=== PATIENT | male | born 1995 | race Caucasian/White ===

== ENCOUNTER 2019-07-15 19:11 | Emergency (ER) | payer SELFPAY ==
[2019-07-15] MEDS ORDERED: DIPH/PERTUSS(ACELL)/TETANUS VAC/PF 0.5 ML SYR (>=10YO) IM ONE ×2 (20:38→22:46)
--- NOTE | 2019-07-15 20:38 | ER Document Report ---
ED Medical Screen (RME) - General Chief Complaint: Laceration Stated Complaint: LEFT ARM LACERATION Time Seen by Provider: 07/15/19 20:31 Primary Care Provider: KODY LOCO MD [Primary Care Provider] - Follow up as needed Mode of Arrival: Ambulatory Information source: Patient Notes: 23-year-old male presented to ED for laceration to the left forearm. He states he was ripping up tile when it was a piece of metal under the tile and he sliced his arm open it is just below the antecubital space. He put a belt on it as a target with trash trash bags tied on and a dressing to the site. His arm was kind of blue at when first examined. The dressings and tourniquet were all removed. Wound irrigated with some saline wet gauze applied with Coban after he exercised his hand the color did return to his fingers. Laceration is about 6 to 7 cm long. I have greeted and performed a rapid initial assessment of this patient. A comprehensive ED assessment and evaluation of the patient, analysis of test results and completion of medical decision making process will be conducted by an additional ED providers. Physical Exam - Vital signs Vitals: Temp Pulse Resp BP Pulse Ox 98.8 F 74 20 132/74 H 96 07/15/19 19:23 07/15/19 19:23 07/15/19 19:23 07/15/19 19:23 07/15/19 19:23 Course - Vital Signs Vital signs: Temp Pulse Resp BP Pulse Ox 98.8 F 74 20 132/74 H 96 07/15/19 19:23 07/15/19 19:23 07/15/19 19:23 07/15/19 19:23 07/15/19 19:23 Doctor's Discharge - Discharge Referrals: KODY LOCO MD [Primary Care Provider] - Follow up as needed
[2019-07-15] MEDS ORDERED: IBUPROFEN 800 MG TABLET PO ONE (20:39)
[2019-07-15] MEDS ORDERED: LIDOCAINE 1%/EPINEPHRINE INJ 20 ML VIAL INJ ONE (22:10)
--- NOTE | 2019-07-15 22:10 | ER Document Report ---
ED Wound - General Chief Complaint: Laceration Stated Complaint: LEFT ARM LACERATION Time Seen by Provider: 07/15/19 20:31 Primary Care Provider: KODY LOCO MD [NO LOCAL MD] - Follow up as needed Mode of Arrival: Ambulatory Notes: CHIEF COMPLAINT: Left elbow laceration HPI: 23-year-old male presenting to the emergency department complaining of a laceration near the antecubital region of the left elbow. Patient states that he was working putting in a floor and a piece of flashing came out when he pulled on it and it struck him in the arm causing the laceration. Denies numbness or tingling in the fingers at this time. Patient denies other injuries or complaints. ROS: See HPI - all other systems were reviewed and are otherwise negative Constitutional: no fever Integumentary: no rash, positive laceration Allergy: no hives Musculoskeletal: Positive extremity pain or swelling Neurological: no numbness/tingling, no weakness MEDICATIONS: I agree with the patient medications as charted by the RN. ALLERGIES: I agree with the allergies as charted by the RN. PAST MEDICAL HISTORY/PAST SURGICAL HISTORY: Reviewed and agree as charted by RN. SOCIAL HISTORY: Reviewed and agree as charted by RN. FAMILY HISTORY: No significant familial comorbid conditions directly related to patient complaint EXAM: Reviewed vital signs as charted by RN. CONSTITUTIONAL: Alert and oriented and responds appropriately to questions. Well-appearing; well-nourished, mild distress secondary to anxiety HEAD: Normocephalic; atraumatic EYES: Conjunctivae clear, sclerae non-icteric ENT: normal nose; no rhinorrhea; moist mucous membranes NECK: Supple without meningismus CARD: symmetric distal pulses RESP: Normal chest excursion without splinting or tachypnea ABD/GI: non-distended BACK: The back appears normal and is non-tender to palpation, there is no CVA tenderness EXT: Normal ROM in all joints; no cyanosis, no effusions, no edema SKIN: Normal color for age and race; warm; dry; good turgor; there is a 6 cm linear laceration just distal to the antecubital region of the left elbow. No visible tendon, arterial injury. Patient able to fully flex and extend the arm at the elbow. No visible or palpable foreign bodies NEURO: Moves all extremities equally; Motor and sensory function intact PSYCH: The patient's mood and manner are appropriate. Grooming and personal hygiene are appropriate. MDM: 23-year-old male with a sick centimeter laceration just distal to the left antecubital region. Does not appear to be any significant deep structural injury. We will plan to close the wound update tetanus status TRAVEL OUTSIDE OF THE [place] IN LAST 30 DAYS: No - Related Data Allergies/Adverse Reactions: Penicillins Allergy (Unknown, Verified 07/15/19 20:40) Home Medications: denies Past Medical History - General Information source: Patient - Social History Smoking Status: Former Smoker Chew tobacco use (# tins/day): No Frequency of alcohol use: Occasional Drug Abuse: None Family History: Reviewed & Not Pertinent Patient has suicidal ideation: No Patient has homicidal ideation: No Physical Exam - Vital signs Vitals: Temp Pulse Resp BP Pulse Ox 98.8 F 74 20 132/74 H 96 07/15/19 19:23 07/15/19 19:23 07/15/19 19:23 07/15/19 19:23 07/15/19 19:23 Course - Vital Signs Vital signs: Temp Pulse Resp BP Pulse Ox 97.8 F 77 20 129/66 H 84 L 07/15/19 21:56 07/15/19 21:56 07/15/19 21:56 07/15/19 21:56 07/15/19 21:56 Procedures - Laceration/Wound Repair Left Proximal Elbow Time completed: 23:48 Wound length (cm): 6 Wound's Depth, Shape: Superficial, Irregular Laceration pre-procedure: Sterile PPE donned, Sterile drapes applied, Other - saline Anesthetic type: 1% Lidocaine w/epi Volume Anesthetic (mLs): 4 Wound explored: Clean, No foreign body removed Irrigated w/ Saline (mLs): 500 Wound Repaired With: Sutures Suture Size/Type: 5:0 Number of Sutures: 10 Layer Closure?: No Deep Layer Suture Size/Type: 5:0 Post-procedure wound care: Sterile dressing applied Post-procedure NV exam normal: Yes Complications: No Discharge - Discharge Clinical Impression: Laceration of forearm, complicated Qualifiers: Encounter type: initial encounter Laterality: left Qualified Code(s): S51.812A - Laceration without foreign body of left forearm, initial encounter Condition: Stable Disposition: HOME, SELF-CARE Additional Instructions: Motrin or Tylenol for pain. Gently wash the area twice daily with soap and water and apply a small amount of antibiotic ointment until healed. Sutures will need to come out in 2 weeks. Return for any redness discharge or swelling. No heavy lifting for 1 week Prescriptions: Ibuprofen [Motrin 600 Mg Tablet] 600 mg PO Q6H #15 tablet Forms: Return to Work Referrals: KODY LOCO MD [NO LOCAL MD] - Follow up as needed
[2019-07-15] MEDS ORDERED: IBUPROFEN 800 MG TABLET ONE (23:46)
[2019-07-16 00:13] VITALS: BP 130/66
== END 2019-07-16 00:12 | disposition home or self-care (01) ==
LOC: ER 19:11
DX: S51.812A Laceration without foreign body of left forearm, initial encounter (principal); W22.8XXA Striking against or struck by other objects, initial encounter; Y93.89 Activity, other specified; Z87.891 Personal history of nicotine dependence; Z88.0 Allergy status to penicillin
CPT/HCPCS: 99282; 90471; 90715; 12002; J3490